=== PATIENT | male | born 1985 | race Caucasian/White ===

== ENCOUNTER → 2016-03-29 | Emergency (ER) | payer MEDICAID ==
[~2016-03-29] VITALS: Ht 190.5 cm; Wt 95.3 kg
[~2016-03-29] MED LIST: BELLADONNA /PHENOBARB 5 ML UDC 5 ML UDC ONE; LIDOCAINE VISCOUS 2% UD 15 ML UDC ONE; MAG HYDROX/AL HYDROX/SIMETH 30 ML UDC ONE; ONDANSETRON HCL/PF 4 MG/2 ML VIAL IM ONE; ONDANSETRON HCL/PF 4 MG/2 ML VIAL ONE
[2016-03-29 01:27] VITALS: BP 100/54
== END | disposition home or self-care (01) ==
LOC: ER 01:27
DX: K21.9 Gastro-esophageal reflux disease without esophagitis (principal); R11.0 Nausea
CPT/HCPCS: A4606; J2405; Z7610

== ENCOUNTER 2016-10-19 22:38 | Emergency (ER) | payer MEDICAID ==
[~2016-10-19] VITALS: Ht 190.5 cm; Wt 95.3 kg
--- NOTE | 2016-10-19 23:00 | NUR ---
BIBSELLolita, C/O LAC TO CHIN S/P FALLING OFF POLE AND HITTING CHIN. +KO, VSS. INITIATED COMFORT MEAURES. INITIAL WOUND CARE DONE.
[2016-10-20] MEDS ORDERED: LIDOCAINE /MPF 1% VIAL 5 ML VIAL ONE (00:21)
--- NOTE | 2016-10-20 00:41 | NUR ---
Dr Cuevas at bedside to suture lac.
--- NOTE | 2016-10-20 00:53 | NUR ---
Patient discharged to home in stable condition. Written and verbal after care instructions given. Patient verbalizes understanding of instruction. Patient is ambulatory with steady gait, no further complaints.
[2016-10-20 00:54] VITALS: BP 100/71
== END 2016-10-20 00:55 | disposition home or self-care (01) ==
LOC: ER 22:39
DX: S01.81XA Laceration without foreign body of other part of head, initial encounter (principal); W01.198A Fall on same level from slipping, tripping and stumbling with subsequent striking against other object, initial encounter; Y93.41 Activity, dancing; Y92.89 Other specified places as the place of occurrence of the external cause; Y99.9 Unspecified external cause status
CPT/HCPCS: 12011; 99283; A4606; A6402; J3490; Z7610

== ENCOUNTER 2016-10-25 13:18 | Emergency (ER) | payer MEDICAID ==
[~2016-10-25] VITALS: Ht 182.9 cm; Wt 81.6 kg
[2016-10-25 14:10] VITALS: BP 134/77
== END 2016-10-25 14:43 | disposition home or self-care (01) ==
LOC: ER 13:23
DX: S01.81XD Laceration without foreign body of other part of head, subsequent encounter (principal)
CPT/HCPCS: 99282; A4606; Z7610